=== PATIENT | female | born 1990 | race Caucasian/White ===

== ENCOUNTER 2020-10-14 01:26 | Emergency (ER) | payer OTHER ==
[~2020-10-14] VITALS: Ht 154.9 cm; Wt 47.6 kg
[2020-10-14 01:35] VITALS: BP 107/62
[2020-10-14] MEDS ORDERED: LIDOCAINE VISC100 ML VAG (02:09)
== END 2020-10-14 02:30 | disposition home or self-care (01) ==
LOC: M.ERS 01:26
DX: B00.1 Herpesviral vesicular dermatitis (principal); A63.0 Anogenital (venereal) warts